=== PATIENT | female | born 1990 | race African-American/Black ===

== ENCOUNTER 2022-11-03 21:01 | Emergency (ER) | payer MEDICAID, OTHER ==
[~2022-11-03] VITALS: Ht 154.9 cm; Wt 105.7 kg
[~2022-11-03 21:01] MED LIST: ALBU17AE26; FLUT1DIS; HC A30CR11; PROAIR; SEROQUEL; SINGULAIR
[2022-11-03] MEDS ORDERED: IPRATROPIUM BROMIDE (0.02%) 0.5MG/2.5ML NEB HHN STA (22:07)
[2022-11-03] MEDS ORDERED: ALBUTEROL (0.083%) 2.5MG/3ML NEB HHN STA (22:07)
[2022-11-03] MEDS ORDERED: PREDNISONE 20MG TABLET PO STA (22:07)
[2022-11-04 00:05] VITALS: BP 128/83
[2022-11-04] MEDS ORDERED: P20 MT (00:22)
[2022-11-04] MEDS ORDERED: ALBU6.7H3 INH (00:22)
== END 2022-11-04 00:36 | disposition home or self-care (01) ==
LOC: ER 21:01
DX: J45.901 Unspecified asthma with (acute) exacerbation (principal); Z88.0 Allergy status to penicillin; Z98.890 Other specified postprocedural states
CPT/HCPCS: 71045; 93005; 94644; 99285; J7512; Z7610